=== PATIENT | male | born 1980 | race Caucasian/White ===

== ENCOUNTER 2019-11-11 07:06 | Outpatient (NON) | payer BC, SELFPAY ==
[2019-11-11 17:48] LABS: SARS-CoV-2 RNA PCR Negative
== END 2019-11-11 07:07 ==
PROVIDERS: PCP Family Medicine; Visit Provider Nurse Practitioner Family
DX: Z20.828 Contact with and (suspected) exposure to other viral communicable diseases (principal); J02.9 Acute pharyngitis, unspecified; R68.89 Other general symptoms and signs
CPT/HCPCS: 87635; C9803; U0003

== ENCOUNTER 2024-07-06 01:47 | Day surgery (SDC) | payer BC, SELFPAY ==
[2024-06-27 15:21] VITALS: BMI 25.0
[2024-07-06 10:40] VITALS: BP 145/88; PULSE 91; RESP 18; TEMP 36.6; O2SAT 98
[2024-07-06] MEDS: LACTATED RINGERS 1,000 ML 150 ML IV CONT (10:57)
--- NOTE | 2024-07-06 11:07 | WPDANESEPPF ---
Anes - Initial Pre Proc Eval Procedure: Operation Date: 07/06/24 11:30 Proposed Procedures p Screening Colonoscopy - Senthil Holloway MD Date/Time: 07/06/24 11:07 Surgeon: Senthil Holloway MD Pre Op Diagnosis: Screening Patient Data Age: 44 Gender: M Height: 1.7 m Weight: 84.6 kg Last Vital Signs Temp 36.6 C 07/06/24 10:40 Pulse 91 07/06/24 10:40 Resp 18 07/06/24 10:40 BP 145/88 H 07/06/24 10:40 Pulse Ox 98 07/06/24 10:40 O2 Del Method Room Air 07/06/24 10:40 Allergies Allergy/AdvReac Type Severity Reaction Status Date / Time rosuvastatin Allergy Unknown Unknown Verified 07/06/24 10:40 Home Medications ?Medication ?Instructions ?Recorded ?Confirmed ?Type atorvastatin 20 mg tablet 20 mg PO DAILY #90 tabs 08/30/23 06/27/24 Rx chlorhexidine gluconate 0.12 % 1 applic PO DAILY 04/06/24 06/27/24 History mouthwash multivitamin (Daily Multi-Vitamin 1 tablet PO DAILY 06/27/24 06/27/24 History tablet) Patient hx anesthesia problems: none Family hx anesthesia problems: none Results Review: All pre-operative results and documents have been reviewed as part of the pre-operative evaluation. [facility] Past Medical History Medical History (Updated 07/05/24 @ 14:33 by Oumar Perez, ) Hyperlipidemia Decreased GFR Screening for thyroid disorder Submandibular gland inflammation Sinusitis Ingrowing right great toenail Urinary symptom or sign URI (upper respiratory infection) Excessive cerumen in both ear canals Eustachian tube dysfunction Body mass index (bmi) 26.0-26.9, adult (02/23/17) Chronic idiopathic constipation Hand pain, right BMI 29.0-29.9,adult BMI 28.0-28.9,adult BMI 27.0-27.9,adult Family History Family History Grandparent Hypertension Diabetes mellitus Father No problems noted. Mother No problems noted. Sibling No problems noted. Social History Social History (Reviewed 04/13/24 @ 14:15 by ANTONIETA Mitchell Smoking status: Never smoker Second hand tobacco smoke exposure: No Alcohol intake: current Alcohol use details: 3 a month occasionally Substance use: never Substance use type: does not use Living arrangements: alone Additional living arrangements comments: Adopted a Huselva named Lwoell. Occupation/Education: occupation Additional occupation/education comments: [employer] and [employer] Gender identity (if verbalized by the patient): Male Spiritual care concerns: No Anes - Eval Final PreProcedure Day of Procedure 07/06/24 11:07 Patient weight: overweight Heart: regular rate and rhythm Lungs: clear to auscultation Airway: Mallampati scale class II Neurological: alert and oriented Last oral intake: >/= 8 hours ASA classification: II Emergent: no Anesthetic plan: proceed Anesthesia type and monitoring: general GIVS and standard monitoring Results Review: All pre-operative results and documents have been reviewed as part of the pre-operative evaluation. Informed Consent: The patient's anesthetic plan and its attendant risks and benefits were discussed with the patient/family/POA. Questions were solicited and answers provided to the satisfaction of the patient/family/POA.
--- NOTE | 2024-07-06 11:15 | PM.HPGS ---
History of Present Illness History of Present Illness Consent: Risks, benefits, and alternatives have been discussed and questions answered. Patient agrees to proceed with procedure. Chief complaint: Screening Narrative: Lele Shelton is a 44 year old male here for first screening colonoscopy Review of Systems Review of Systems: All systems reviewed & are unremarkable except as noted in HPI and below PMFSH Past Medical History Medical History (Updated 07/06/24 @ 11:16 by Senthil Holloway MD) Colon cancer screening Hyperlipidemia Decreased GFR Screening for thyroid disorder Submandibular gland inflammation Sinusitis Ingrowing right great toenail Urinary symptom or sign URI (upper respiratory infection) Excessive cerumen in both ear canals Eustachian tube dysfunction Body mass index (bmi) 26.0-26.9, adult (02/23/17) Chronic idiopathic constipation Hand pain, right BMI 29.0-29.9,adult BMI 28.0-28.9,adult BMI 27.0-27.9,adult Family History Family History Grandparent Hypertension Diabetes mellitus Father No problems noted. Mother No problems noted. Sibling No problems noted. Social History Social History Smoking status: Never smoker Second hand tobacco smoke exposure: No Alcohol intake: current Alcohol use details: 3 a month occasionally Substance use: never Substance use type: does not use Living arrangements: alone Additional living arrangements comments: Adopted a Husky named Lowell. Occupation/Education: occupation Additional occupation/education comments: [employer] and [employer] Gender identity (if verbalized by the patient): Male Spiritual care concerns: No Meds Home Medications and Allergies Home Medications ?Medication ?Instructions ?Recorded ?Confirmed ?Type atorvastatin 20 mg tablet 20 mg PO DAILY #90 tabs 08/30/23 06/27/24 Rx chlorhexidine gluconate 0.12 % 1 applic PO DAILY 04/06/24 06/27/24 History mouthwash multivitamin (Daily Multi-Vitamin 1 tablet PO DAILY 06/27/24 06/27/24 History tablet) Allergies Allergy/AdvReac Type Severity Reaction Status Date / Time rosuvastatin Allergy Unknown Unknown Verified 07/06/24 10:40 Vital Signs Vital Signs - 24 hr 07/06/24 10:40 Temperature 97.8 F Pulse Rate 91 Respiratory Rate 18 Blood Pressure 145/88 H Pulse Oximetry 98 Oxygen Delivery Room Air Exam Const: General: comfortable and no acute distress HENMT: Face/Nose/Sinus: Normal nares present Resp: Auscultation: clear to auscultation bilaterally Cardio: Rate: regular rate Rhythm: regular rhythm GI: Inspection: non-distended GI Palp: Yes Soft to palpation Skin: General skin exam: normal color Neuro: Speech: normal speech Extrem: General: normal to inspection Psych: Mental Status: mental status grossly normal Assessment and Plan Assessment and plan (1) Colon cancer screening: Code(s): Z12.11 - Encounter for screening for malignant neoplasm of colon Status: Acute Assessment and Plan: colonoscopy
[2024-07-06 11:38] VITALS: BP 87/57; PULSE 88; RESP 22; O2SAT 93
[2024-07-06 11:48] VITALS: BP 98/64; PULSE 83; RESP 18; O2SAT 96
[2024-07-06 11:58] VITALS: BP 103/64; PULSE 81; RESP 18; O2SAT 96
== END 2024-07-06 12:12 | disposition home or self-care (01) ==
PROVIDERS: PCP Family Medicine; Referring Provider Nurse Practitioner Family; Visit Provider Internal Medicine Gastroenterology
PROC: 0DJD8ZZ Inspection of Lower Intestinal Tract, Via Natural or Artificial Opening Endoscopic (ICD-10-PCS; CPT 45378; principal; 2024-07-06 11:30)
DX: Z12.11 Encounter for screening for malignant neoplasm of colon (principal); D12.2 Benign neoplasm of ascending colon
CPT/HCPCS: 45385; 88305; J2003; J2704; J7120